=== PATIENT | male | born 1930 | race Caucasian/White ===

== ENCOUNTER 2019-03-10 19:01 | Inpatient (IN) ==
[2019-03-10] MEDS ORDERED: SODIUM CHLORIDE 0.9% 1,000 ML IV STA (21:19)
[2019-03-10 21:45] LABS: Basophils % 0.1 % (0.0-0.8); Hematocrit 36.8 VOL% (42.0-52.0); Hemoglobin 12.9 GM/DL (14.0-18.0); Immature Granulocytes % 0.4 %; Immature Granulocytes Absolute 0.05 #; Lymphocytes # 0.6 10*3/uL (1.4-4.0); Mean Corpuscular HGB Conc 35.1 GM/DL (32-36); Mean Corpuscular Volume 88.9 FL (87-102); Mean Platelet Volume 9.6 FL (9.6-12.0); Monocytes % 7.1 % (1.7-12.7); Neutrophils % 87.4 % (38.7-73.9); Platelet Count 152 T/CUMM (130-400); Red Blood Count 4.14 MC/CUMM (3.8-5.5); Red Cell Distribution Width 12.6 % (9.3-17.3); White Blood Count 12.4 T/CUMM (4-12)
[2019-03-10 22:00] LABS: Albumin 3.3 G/DL (3.4-5.0); Bilirubin,Total 1.3 MG/DL (0.2-1.0); Calcium 8.4 MG/DL (8.5-10.1); Osmolality,Calculated 277.1 MOS/KG (273-304); Total Protein 6.9 G/DL (6.4-8.3)
[2019-03-10 22:35] LABS: Apearance,Urine Slightly Hazy (Clear); Bilirubin,Urine Negative (Negative); Blood, Urine Large mg/dL (Negative); Glucose,Urine (UA) Negative (Negative); Granular Casts,Urine 4 /LPF (0-1); Hyaline Casts,Urine 4 /LPF (0-3); Ketones,Urine 5 mg/dL (Negative); Mucus,Urine Occasional /LPF (Occasional); Nitrite,Urine Negative (Negative); Protein,Urine 100 MG/DL; RBC,Urine 1 /HPF (0-4); Squamous Epithelial Cell,Urine Occasional /HPF (0-10); Urine Color Yellow (Yellow); Urine Specific Gravity 1.018 (1.001-1.035); Urine Urobilinogen < 2.0 EU/DL (0.2-1.0); WBC,Urine 30 /HPF (0-6)
[2019-03-10] MEDS ORDERED: cefTRIAXone 1,000 MG in SODIUM CHLORIDE 0.9% 100 ML IV STA (22:58)
[2019-03-11] MEDS ORDERED: DOCUSATE SODIUM 100 MG CAPSULE PO PRN (00:05)
[2019-03-11] MEDS ORDERED: ONDANSETRON 4 MG/2 ML VIAL IV PRN (00:05)
[2019-03-11] MEDS ORDERED: guaiFENesin/DM ER 600-30 MG TABLET PO PRN (00:05)
[2019-03-11] MEDS: ALBUTEROL/IPRATROPIUM 3 ML NEB RESP TX SCH ×4 (01:04→19:16)
[2019-03-11] MEDS: SODIUM CHLORIDE 0.9% 1,000 ML IV SCH ×3 (01:39→18:46)
[2019-03-11] MEDS: AZITHROMYCIN INJ 500 MG in SODIUM CHLORIDE 0.9% 250 ML IV SCH (01:39)
[2019-03-11 07:14] LABS: Basophils % 0.1 % (0.0-0.8); Hematocrit 34.2 VOL% (42.0-52.0); Hemoglobin 11.9 GM/DL (14.0-18.0); Immature Granulocytes % 0.5 %; Immature Granulocytes Absolute 0.05 #; Lymphocytes # 0.6 10*3/uL (1.4-4.0); Lymphocytes % 6.1 % (21.2-54.2); Mean Corpuscular HGB Conc 34.8 GM/DL (32-36); Mean Corpuscular Volume 88.4 FL (87-102); Mean Platelet Volume 9.3 FL (9.6-12.0); Monocytes % 6.3 % (1.7-12.7); Platelet Count 143 T/CUMM (130-400); Red Blood Count 3.87 MC/CUMM (3.8-5.5); Red Cell Distribution Width 12.7 % (9.3-17.3)
[2019-03-11 07:56] LABS: Albumin 2.7 G/DL (3.4-5.0); Bilirubin,Total 1.8 MG/DL (0.2-1.0); Calcium 8.2 MG/DL (8.5-10.1); Total Protein 5.7 G/DL (6.4-8.3)
[2019-03-11] MEDS: PANTOPRAZOLE 40 MG TABLET PO SCH (08:45)
[2019-03-11] MEDS: ENOXAPARIN 40 MG/0.4 ML SYRINGE SUBCUT SCH (08:45)
[2019-03-11] MEDS: ZALEPLON 5 MG CAPSULE PO PRN (21:42)
[2019-03-12] MEDS ORDERED: cefTRIAXone 1,000 MG in SYRINGE 1 EACH IV SCH (01:00)
[2019-03-12] MEDS: ALBUTEROL/IPRATROPIUM 3 ML NEB RESP TX SCH ×4 (01:36→21:10)
[2019-03-12] MEDS: SODIUM CHLORIDE 0.9% 1,000 ML IV SCH (02:42)
[2019-03-12 05:31] LABS: Basophils % 0.1 % (0.0-0.8); Eosinophils % 0.1 % (0.00-10.9); Hematocrit 33.8 VOL% (42.0-52.0); Immature Granulocytes % 0.3 %; Immature Granulocytes Absolute 0.04 #; Lymphocytes # 0.8 10*3/uL (1.4-4.0); Lymphocytes % 6.5 % (21.2-54.2); Mean Corpuscular HGB Conc 35.5 GM/DL (32-36); Mean Corpuscular Volume 88.3 FL (87-102); Mean Platelet Volume 10.4 FL (9.6-12.0); Monocytes % 6.6 % (1.7-12.7); Neutrophils % 86.4 % (38.7-73.9); Platelet Count 179 T/CUMM (130-400); Red Blood Count 3.83 MC/CUMM (3.8-5.5); Red Cell Distribution Width 12.7 % (9.3-17.3); White Blood Count 11.9 T/CUMM (4-12)
[2019-03-12 06:06] LABS: Calcium 7.8 MG/DL (8.5-10.1); Osmolality,Calculated 277.7 MOS/KG (273-304)
[2019-03-12] MEDS ORDERED: ALPRAZolam 0.5 MG TABLET PO ONE (10:30)
[2019-03-12] MEDS ORDERED: ALPRAZolam 0.5 MG TABLET PO SCH (10:30)
[2019-03-12] MEDS: PANTOPRAZOLE 40 MG TABLET PO SCH (12:12)
[2019-03-12] MEDS: methylPREDNISolone SOD SUC 40 MG/1 ML VIAL IV SCH ×3 (12:12→21:59)
[2019-03-12] MEDS: ENOXAPARIN 40 MG/0.4 ML SYRINGE SUBCUT SCH (12:13)
[2019-03-12] MEDS: AZITHROMYCIN INJ 500 MG in SODIUM CHLORIDE 0.9% 250 ML IV SCH (12:21)
[2019-03-12] MEDS: BUDESONIDE 0.5 MG/2 ML NEB RESP TX SCH ×2 (13:01→21:10)
[2019-03-12] MEDS: PIPERACILLIN/TAZOBACTAM 3,375 MG in SODIUM CHLORIDE 0.9% 100 ML IV SCH ×2 (13:05→22:05)
[2019-03-12] MEDS ORDERED: hydrOXYzine HCL 10 MG TABLET PO PRN (14:15)
[2019-03-12] MEDS ORDERED: FEXOFENADINE 60 MG TABLET PO PRN (14:15)
[2019-03-12] MEDS ORDERED: POLYVINYL ALCOHOL 1.4% OPH SOLN 15 ML BOTTLE BOTH EYES PRN (14:15)
[2019-03-12] MEDS ORDERED: FLUTICASONE 50 MCG NASAL SPRAY 16 GM BOTTLE BOTH NARES PRN (14:15)
[2019-03-12] MEDS ORDERED: LIDOCAINE 5% PATCH TRANSDERM PRN (14:15)
[2019-03-12] MEDS: CHOLECALCIFEROL 1,000 UNIT TABLET PO SCH (15:42)
[2019-03-12] MEDS: ASPIRIN EC 81 MG TABLET PO SCH (15:42)
[2019-03-12] MEDS: DOCUSATE SODIUM 100 MG CAPSULE PO SCH ×2 (15:42→21:58)
[2019-03-12] MEDS: FINASTERIDE 5 MG TABLET PO SCH (15:42)
[2019-03-12] MEDS: FUROSEMIDE 20 MG/2 ML VIAL IV SCH (15:42)
[2019-03-12] MEDS: FLUoxetine 20 MG CAPSULE PO SCH ×2 (15:42→21:58)
[2019-03-12] MEDS: ALBUTEROL 2.5 MG/3 ML NEB RESP TX PRN (15:45)
[2019-03-12] MEDS: CARVEDILOL 3.125 MG TABLET PO SCH (16:28)
[2019-03-12] MEDS ORDERED: QUEtiapine 100 MG TABLET PO SCH (21:00)
[2019-03-12] MEDS: ZALEPLON 5 MG CAPSULE PO PRN (22:05)
[2019-03-13] MEDS: ALBUTEROL/IPRATROPIUM 3 ML NEB RESP TX SCH ×4 (00:50→19:33)
[2019-03-13 04:15] LABS: ABG Base Excess -0.4 MMOL/L (-2.5-2.5); ABG HCO3 23.8 MMOL/L (20-26); ABG Oxygen Saturation 86.3 % (95-100); ABG PCO2 34.7 MM HG (35-48); ABG PH 7.434 (7.35-7.45); ABG PO2 50.3 MM HG (80-95); ABG TCO2 20.4 MMOL/L (23-27); Allen Test Positive; Pt O2 Delivery Device BIPAP
[2019-03-13 04:24] LABS: Basophils % 0.1 % (0.0-0.8); Hematocrit 34.5 VOL% (42.0-52.0); Hemoglobin 12.3 GM/DL (14.0-18.0); Immature Granulocytes % 0.6 %; Immature Granulocytes Absolute 0.05 #; Lymphocytes # 0.3 10*3/uL (1.4-4.0); Lymphocytes % 3.4 % (21.2-54.2); Mean Corpuscular HGB Conc 35.7 GM/DL (32-36); Mean Corpuscular Volume 87.6 FL (87-102); Neutrophils % 92.9 % (38.7-73.9); Platelet Count 168 T/CUMM (130-400); Red Blood Count 3.94 MC/CUMM (3.8-5.5); Red Cell Distribution Width 12.6 % (9.3-17.3); White Blood Count 8.7 T/CUMM (4-12)
[2019-03-13 04:46] LABS: Calcium 8.2 MG/DL (8.5-10.1)
[2019-03-13] MEDS: methylPREDNISolone SOD SUC 40 MG/1 ML VIAL IV SCH ×4 (05:25→21:35)
[2019-03-13 05:26] LABS: Band Neutrophils 1 % (0-10); Lymphocytes 4 % (20-55); Platelet Estimate Adequate; Segmented Neutrophils 93 % (50-85); Total Cells Counted 100
[2019-03-13] MEDS: PIPERACILLIN/TAZOBACTAM 3,375 MG in SODIUM CHLORIDE 0.9% 100 ML IV SCH ×3 (05:32→21:42)
[2019-03-13] MEDS: BUDESONIDE 0.5 MG/2 ML NEB RESP TX SCH ×2 (06:47→19:35)
[2019-03-13] MEDS ORDERED: AZITHROMYCIN 250 MG TABLET PO SCH (09:00)
[2019-03-13] MEDS: CHOLECALCIFEROL 1,000 UNIT TABLET PO SCH (09:43)
[2019-03-13] MEDS: DOCUSATE SODIUM 100 MG CAPSULE PO SCH ×2 (09:43→20:32)
[2019-03-13] MEDS: CARVEDILOL 3.125 MG TABLET PO SCH ×2 (09:44→17:26)
[2019-03-13] MEDS: ASPIRIN EC 81 MG TABLET PO SCH (09:44)
[2019-03-13] MEDS: PANTOPRAZOLE 40 MG TABLET PO SCH (09:45)
[2019-03-13] MEDS: FLUoxetine 20 MG CAPSULE PO SCH (09:45)
[2019-03-13] MEDS: ENOXAPARIN 40 MG/0.4 ML SYRINGE SUBCUT SCH (09:45)
[2019-03-13] MEDS: FINASTERIDE 5 MG TABLET PO SCH (09:45)
[2019-03-13] MEDS: FUROSEMIDE 20 MG/2 ML VIAL IV SCH ×2 (09:46→17:25)
[2019-03-13] MEDS: ZINC OXIDE PASTE 113 GM TUBE TOP SCH (20:33)
[2019-03-13] MEDS ORDERED: QUEtiapine 25 MG TABLET PO SCH (21:00)
[2019-03-13] MEDS: ZALEPLON 5 MG CAPSULE PO PRN (22:27)
[2019-03-14] MEDS: ALBUTEROL/IPRATROPIUM 3 ML NEB RESP TX SCH ×4 (00:36→20:22)
[2019-03-14] MEDS: ACETAMINOPHEN 325 MG TABLET PO PRN (02:18)
[2019-03-14] MEDS: ALBUTEROL 2.5 MG/3 ML NEB RESP TX PRN (02:35)
[2019-03-14] MEDS ORDERED: FUROSEMIDE 40 MG/4 ML VIAL IV ONE (02:54)
[2019-03-14] MEDS: methylPREDNISolone SOD SUC 40 MG/1 ML VIAL IV SCH ×3 (04:26→17:07)
[2019-03-14] MEDS: PIPERACILLIN/TAZOBACTAM 3,375 MG in SODIUM CHLORIDE 0.9% 100 ML IV SCH ×2 (04:28→13:25)
[2019-03-14 05:57] LABS: Basophils % 0.2 % (0.0-0.8); Hematocrit 36.9 VOL% (42.0-52.0); Hemoglobin 13.4 GM/DL (14.0-18.0); Immature Granulocytes % 0.9 %; Lymphocytes # 0.5 10*3/uL (1.4-4.0); Lymphocytes % 1.9 % (21.2-54.2); Mean Corpuscular HGB Conc 36.3 GM/DL (32-36); Mean Corpuscular Volume 85.6 FL (87-102); Mean Platelet Volume 10.1 FL (9.6-12.0); Platelet Count 267 T/CUMM (130-400); Red Blood Count 4.31 MC/CUMM (3.8-5.5); Red Cell Distribution Width 12.7 % (9.3-17.3); White Blood Count 23.3 T/CUMM (4-12)
[2019-03-14 06:10] LABS: Calcium 8.5 MG/DL (8.5-10.1); Osmolality,Calculated 280.8 MOS/KG (273-304)
[2019-03-14 06:21] LABS: Hypochromasia Slight; Lymphocytes 3 % (20-55); Platelet Estimate Adequate; Segmented Neutrophils 94 % (50-85); Total Cells Counted 100
[2019-03-14] MEDS: BUDESONIDE 0.5 MG/2 ML NEB RESP TX SCH ×2 (07:12→20:22)
[2019-03-14] MEDS: CARVEDILOL 3.125 MG TABLET PO SCH (08:41)
[2019-03-14] MEDS: FUROSEMIDE 20 MG/2 ML VIAL IV SCH (08:41)
[2019-03-14] MEDS: FUROSEMIDE 40 MG/4 ML VIAL IV SCH ×2 (09:12→17:07)
[2019-03-14] MEDS: PANTOPRAZOLE 40 MG TABLET PO SCH (09:14)
[2019-03-14] MEDS: CHOLECALCIFEROL 1,000 UNIT TABLET PO SCH (09:15)
[2019-03-14] MEDS: FINASTERIDE 5 MG TABLET PO SCH (09:15)
[2019-03-14] MEDS: DOCUSATE SODIUM 100 MG CAPSULE PO SCH ×2 (09:15→20:35)
[2019-03-14] MEDS: POTASSIUM CHLORIDE 20 MEQ TABLET PO SCH ×2 (09:16→20:32)
[2019-03-14] MEDS: ENOXAPARIN 40 MG/0.4 ML SYRINGE SUBCUT SCH (09:16)
[2019-03-14] MEDS: CARVEDILOL 6.25 MG TABLET PO SCH ×2 (09:16→17:08)
[2019-03-14] MEDS: ASPIRIN EC 81 MG TABLET PO SCH (09:16)
[2019-03-14] MEDS: ZINC OXIDE PASTE 113 GM TUBE TOP SCH ×2 (09:18→20:33)
[2019-03-14] MEDS ORDERED: FUROSEMIDE 20 MG/2 ML VIAL ONE (16:56)
[2019-03-14] MEDS: APIXABAN 5 MG TABLET PO SCH (20:36)
[2019-03-15] MEDS: PIPERACILLIN/TAZOBACTAM 3,375 MG in SODIUM CHLORIDE 0.9% 100 ML IV SCH ×2 (00:11→08:20)
[2019-03-15] MEDS: methylPREDNISolone SOD SUC 40 MG/1 ML VIAL IV SCH ×2 (00:12→10:15)
[2019-03-15] MEDS: FUROSEMIDE 40 MG/4 ML VIAL IV SCH ×3 (00:13→15:26)
[2019-03-15] MEDS: ALBUTEROL/IPRATROPIUM 3 ML NEB RESP TX SCH ×4 (01:39→19:52)
[2019-03-15 05:06] LABS: Basophils # 0.1 10*3/uL (0.0-0.2); Basophils % 0.2 % (0.0-0.8); Hematocrit 39.2 VOL% (42.0-52.0); Hemoglobin 13.7 GM/DL (14.0-18.0); Immature Granulocytes % 0.8 %; Immature Granulocytes Absolute 0.17 #; Lymphocytes # 0.5 10*3/uL (1.4-4.0); Lymphocytes % 2.3 % (21.2-54.2); Mean Corpuscular HGB Conc 34.9 GM/DL (32-36); Mean Corpuscular Volume 87.9 FL (87-102); Monocytes % 4.6 % (1.7-12.7); Neutrophils % 92.1 % (38.7-73.9); Platelet Count 284 T/CUMM (130-400); Red Blood Count 4.46 MC/CUMM (3.8-5.5); Red Cell Distribution Width 12.6 % (9.3-17.3); White Blood Count 20.2 T/CUMM (4-12)
[2019-03-15 05:35] LABS: Calcium 8.1 MG/DL (8.5-10.1); Osmolality,Calculated 279.1 MOS/KG (273-304)
[2019-03-15 05:50] LABS: Lymphocytes 2 % (20-55); Segmented Neutrophils 93 % (50-85); Total Cells Counted 100
[2019-03-15 05:51] LABS: Anisocytosis Slight; Microcytosis Slight
[2019-03-15 05:52] LABS: Stomatocytes Few; Target Cells Slight
[2019-03-15 05:55] LABS: Platelet Estimate Normal
[2019-03-15] MEDS: BUDESONIDE 0.5 MG/2 ML NEB RESP TX SCH ×2 (07:02→19:52)
[2019-03-15] MEDS: ZINC OXIDE PASTE 113 GM TUBE TOP SCH ×2 (09:00→21:45)
[2019-03-15] MEDS: CHOLECALCIFEROL 1,000 UNIT TABLET PO SCH (10:11)
[2019-03-15] MEDS: FINASTERIDE 5 MG TABLET PO SCH (10:12)
[2019-03-15] MEDS: POTASSIUM CHLORIDE 20 MEQ TABLET PO SCH ×2 (10:13→21:45)
[2019-03-15] MEDS: PANTOPRAZOLE 40 MG TABLET PO SCH (10:13)
[2019-03-15] MEDS: DOCUSATE SODIUM 100 MG CAPSULE PO SCH ×2 (10:14→21:45)
[2019-03-15] MEDS: APIXABAN 5 MG TABLET PO SCH ×2 (10:14→21:45)
[2019-03-15] MEDS: ASPIRIN EC 81 MG TABLET PO SCH (10:14)
[2019-03-15] MEDS: CARVEDILOL 6.25 MG TABLET PO SCH ×2 (10:15→17:30)
[2019-03-15] MEDS: LOSARTAN 25 MG TABLET PO SCH (15:25)
[2019-03-15] MEDS: CEFEPIME 2,000 MG in SYRINGE 1 EACH IV SCH ×2 (15:30→21:59)
[2019-03-15] MEDS: VANCOMYCIN INJ 1,500 MG in SODIUM CHLORIDE 0.9% 500 ML IV SCH (15:38)
[2019-03-15] MEDS: AZITHROMYCIN INJ 500 MG in SODIUM CHLORIDE 0.9% 250 ML IV SCH (17:30)
[2019-03-16] MEDS: FUROSEMIDE 40 MG/4 ML VIAL IV SCH ×2 (01:18→14:13)
[2019-03-16] MEDS: ALBUTEROL/IPRATROPIUM 3 ML NEB RESP TX SCH ×4 (01:31→19:15)
[2019-03-16 05:27] LABS: Basophils % 0.2 % (0.0-0.8); Eosinophils # 0.1 10*3/uL (0.0-0.87); Eosinophils % 0.3 % (0.00-10.9); Hemoglobin 14.2 GM/DL (14.0-18.0); Immature Granulocytes % 1.4 %; Immature Granulocytes Absolute 0.26 #; Lymphocytes # 0.9 10*3/uL (1.4-4.0); Lymphocytes % 4.6 % (21.2-54.2); Mean Corpuscular HGB Conc 34.6 GM/DL (32-36); Mean Corpuscular Volume 89.5 FL (87-102); Mean Platelet Volume 10.6 FL (9.6-12.0); Monocytes % 3.5 % (1.7-12.7); Platelet Count 317 T/CUMM (130-400); Red Blood Count 4.58 MC/CUMM (3.8-5.5); Red Cell Distribution Width 12.8 % (9.3-17.3); White Blood Count 18.3 T/CUMM (4-12)
[2019-03-16] MEDS: CEFEPIME 2,000 MG in SYRINGE 1 EACH IV SCH ×3 (05:46→20:38)
[2019-03-16 05:47] LABS: Calcium 8.6 MG/DL (8.5-10.1); Osmolality,Calculated 273.4 MOS/KG (273-304)
[2019-03-16] MEDS: POTASSIUM CHLORIDE 20 MEQ TABLET PO PRN ×3 (05:55→14:16)
[2019-03-16 06:25] LABS: Anisocytosis 1+; Eosinophils 1 % (0-10); Lymphocytes 6 % (20-55); Platelet Estimate Adequate; Segmented Neutrophils 90 % (50-85); Total Cells Counted 100
[2019-03-16] MEDS: ACETAMINOPHEN 325 MG TABLET PO PRN ×2 (07:08→20:39)
[2019-03-16] MEDS: BUDESONIDE 0.5 MG/2 ML NEB RESP TX SCH ×2 (07:20→19:15)
[2019-03-16] MEDS: CARVEDILOL 6.25 MG TABLET PO SCH ×2 (07:38→16:45)
[2019-03-16] MEDS: VANCOMYCIN INJ 1,500 MG in SODIUM CHLORIDE 0.9% 500 ML IV SCH (07:38)
[2019-03-16] MEDS: POTASSIUM CHLORIDE 20 MEQ TABLET PO SCH ×2 (09:38→20:39)
[2019-03-16] MEDS: LOSARTAN 25 MG TABLET PO SCH (09:38)
[2019-03-16] MEDS: predniSONE 20 MG TABLET PO SCH (09:38)
[2019-03-16] MEDS: PANTOPRAZOLE 40 MG TABLET PO SCH (09:38)
[2019-03-16] MEDS: CHOLECALCIFEROL 1,000 UNIT TABLET PO SCH (09:38)
[2019-03-16] MEDS: ASPIRIN EC 81 MG TABLET PO SCH (09:38)
[2019-03-16] MEDS: APIXABAN 5 MG TABLET PO SCH ×2 (09:39→20:40)
[2019-03-16] MEDS: FINASTERIDE 5 MG TABLET PO SCH (09:39)
[2019-03-16] MEDS: DOCUSATE SODIUM 100 MG CAPSULE PO SCH ×2 (09:40→20:40)
[2019-03-16] MEDS: ZINC OXIDE PASTE 113 GM TUBE TOP SCH ×2 (09:40→20:40)
[2019-03-16] MEDS: AZITHROMYCIN INJ 500 MG in SODIUM CHLORIDE 0.9% 250 ML IV SCH (16:45)
[2019-03-16] MEDS: ZALEPLON 5 MG CAPSULE PO PRN (21:47)
[2019-03-16] MEDS: POLYETHYLENE GLYCOL POWDER 17 GM PACK PO PRN (21:47)
[2019-03-17] MEDS: ALBUTEROL/IPRATROPIUM 3 ML NEB RESP TX SCH ×4 (01:45→20:26)
[2019-03-17] MEDS: FUROSEMIDE 40 MG/4 ML VIAL IV SCH ×2 (01:50→12:30)
[2019-03-17] MEDS: VANCOMYCIN INJ 1,500 MG in SODIUM CHLORIDE 0.9% 500 ML IV SCH ×2 (01:57→20:53)
[2019-03-17 03:37] LABS: Basophils % 0.2 % (0.0-0.8); Eosinophils # 0.2 10*3/uL (0.0-0.87); Hematocrit 39.6 VOL% (42.0-52.0); Hemoglobin 13.7 GM/DL (14.0-18.0); Immature Granulocytes % 1.5 %; Immature Granulocytes Absolute 0.26 #; Lymphocytes % 5.8 % (21.2-54.2); Mean Corpuscular HGB Conc 34.6 GM/DL (32-36); Mean Corpuscular Volume 89.2 FL (87-102); Mean Platelet Volume 10.6 FL (9.6-12.0); Monocytes % 2.6 % (1.7-12.7); Neutrophils % 88.9 % (38.7-73.9); Platelet Count 291 T/CUMM (130-400); Red Blood Count 4.44 MC/CUMM (3.8-5.5); Red Cell Distribution Width 12.4 % (9.3-17.3); White Blood Count 17.5 T/CUMM (4-12)
[2019-03-17 05:46] LABS: Calcium 8.4 MG/DL (8.5-10.1); Osmolality,Calculated 276.2 MOS/KG (273-304)
[2019-03-17] MEDS: CEFEPIME 2,000 MG in SYRINGE 1 EACH IV SCH (05:51)
[2019-03-17] MEDS: BUDESONIDE 0.5 MG/2 ML NEB RESP TX SCH ×2 (06:47→20:26)
[2019-03-17] MEDS: CHOLECALCIFEROL 1,000 UNIT TABLET PO SCH (08:06)
[2019-03-17] MEDS: FINASTERIDE 5 MG TABLET PO SCH (08:06)
[2019-03-17] MEDS: PANTOPRAZOLE 40 MG TABLET PO SCH (08:06)
[2019-03-17] MEDS: POTASSIUM CHLORIDE 20 MEQ TABLET PO SCH ×2 (08:06→20:13)
[2019-03-17] MEDS: CARVEDILOL 6.25 MG TABLET PO SCH ×2 (08:06→17:06)
[2019-03-17] MEDS: APIXABAN 5 MG TABLET PO SCH ×2 (08:06→20:13)
[2019-03-17] MEDS: LOSARTAN 25 MG TABLET PO SCH (08:06)
[2019-03-17] MEDS: predniSONE 20 MG TABLET PO SCH (08:06)
[2019-03-17] MEDS: DOCUSATE SODIUM 100 MG CAPSULE PO SCH ×2 (08:07→20:13)
[2019-03-17] MEDS: ASPIRIN EC 81 MG TABLET PO SCH (08:07)
[2019-03-17] MEDS: ZINC OXIDE PASTE 113 GM TUBE TOP SCH ×2 (08:08→23:12)
[2019-03-17] MEDS: POLYETHYLENE GLYCOL POWDER 17 GM PACK PO PRN (08:08)
[2019-03-17] MEDS: MEROPENEM 1,000 MG in SODIUM CHLORIDE 0.9% 100 ML IV SCH ×2 (11:44→18:05)
[2019-03-17] MEDS: methylPREDNISolone SOD SUC 40 MG/1 ML VIAL IV SCH ×2 (11:44→19:36)
[2019-03-17] MEDS: LEVOFLOXACIN INJ 750 MG in PREMIX 1 EACH IV SCH (12:30)
[2019-03-18] MEDS: FUROSEMIDE 40 MG/4 ML VIAL IV SCH ×2 (00:21→14:40)
[2019-03-18] MEDS: ALBUTEROL/IPRATROPIUM 3 ML NEB RESP TX SCH ×4 (00:27→19:19)
[2019-03-18] MEDS: MEROPENEM 1,000 MG in SODIUM CHLORIDE 0.9% 100 ML IV SCH ×3 (02:44→19:30)
[2019-03-18] MEDS: methylPREDNISolone SOD SUC 40 MG/1 ML VIAL IV SCH ×2 (02:45→14:41)
[2019-03-18] MEDS: BUDESONIDE 0.5 MG/2 ML NEB RESP TX SCH ×2 (07:24→19:19)
[2019-03-18] MEDS ORDERED: FUROSEMIDE 40 MG/4 ML VIAL IV ONE (08:22)
[2019-03-18] MEDS: POTASSIUM CHLORIDE 20 MEQ TABLET PO SCH ×2 (08:42→20:38)
[2019-03-18] MEDS: LOSARTAN 25 MG TABLET PO SCH (08:42)
[2019-03-18] MEDS: PANTOPRAZOLE 40 MG TABLET PO SCH (08:42)
[2019-03-18] MEDS: ASPIRIN EC 81 MG TABLET PO SCH (08:42)
[2019-03-18] MEDS: CARVEDILOL 6.25 MG TABLET PO SCH ×2 (08:42→18:46)
[2019-03-18] MEDS: FINASTERIDE 5 MG TABLET PO SCH (08:42)
[2019-03-18] MEDS: APIXABAN 5 MG TABLET PO SCH (08:42)
[2019-03-18] MEDS: DOCUSATE SODIUM 100 MG CAPSULE PO SCH ×2 (08:42→20:38)
[2019-03-18] MEDS: VANCOMYCIN INJ 1,500 MG in SODIUM CHLORIDE 0.9% 500 ML IV SCH ×2 (08:44→20:38)
[2019-03-18] MEDS: CHOLECALCIFEROL 1,000 UNIT TABLET PO SCH (08:44)
[2019-03-18] MEDS: ZINC OXIDE PASTE 113 GM TUBE TOP SCH ×2 (09:26→21:17)
[2019-03-18] MEDS: FLUCONAZOLE INJ 100 MG in IV BAG 1 EACH IV SCH (14:41)
[2019-03-18] MEDS ORDERED: methylPREDNISolone SOD SUC 40 MG/1 ML VIAL IV SCH ×2 (15:00)
[2019-03-18] MEDS: LEVOFLOXACIN INJ 750 MG in PREMIX 1 EACH IV SCH (15:15)
[2019-03-19] MEDS: FUROSEMIDE 40 MG/4 ML VIAL IV SCH ×2 (00:02→15:12)
[2019-03-19] MEDS: ALBUTEROL/IPRATROPIUM 3 ML NEB RESP TX SCH ×4 (01:42→19:14)
[2019-03-19] MEDS: MEROPENEM 1,000 MG in SODIUM CHLORIDE 0.9% 100 ML IV SCH ×3 (03:20→18:10)
[2019-03-19] MEDS: methylPREDNISolone SOD SUC 40 MG/1 ML VIAL IV SCH ×2 (04:18→15:10)
[2019-03-19 04:42] LABS: Basophils # 0.1 10*3/uL (0.0-0.2); Basophils % 0.3 % (0.0-0.8); Eosinophils # 0.1 10*3/uL (0.0-0.87); Eosinophils % 0.3 % (0.00-10.9); Hematocrit 38.5 VOL% (42.0-52.0); Hemoglobin 13.1 GM/DL (14.0-18.0); Immature Granulocytes % 1.8 %; Immature Granulocytes Absolute 0.51 #; Lymphocytes # 0.7 10*3/uL (1.4-4.0); Lymphocytes % 2.5 % (21.2-54.2); Mean Corpuscular Volume 90.6 FL (87-102); Monocytes % 4.2 % (1.7-12.7); Neutrophils % 90.9 % (38.7-73.9); Platelet Count 353 T/CUMM (130-400); Red Blood Count 4.25 MC/CUMM (3.8-5.5); Red Cell Distribution Width 12.4 % (9.3-17.3); White Blood Count 27.8 T/CUMM (4-12)
[2019-03-19 04:48] LABS: Calcium 8.7 MG/DL (8.5-10.1); Osmolality,Calculated 271.7 MOS/KG (273-304)
[2019-03-19 05:46] LABS: Eosinophils 1 % (0-10); Lymphocytes 5 % (20-55); Segmented Neutrophils 92 % (50-85)
[2019-03-19 05:47] LABS: Platelet Estimate Adequate; Total Cells Counted 100
[2019-03-19] MEDS: BUDESONIDE 0.5 MG/2 ML NEB RESP TX SCH ×2 (07:20→19:14)
[2019-03-19] MEDS: FINASTERIDE 5 MG TABLET PO SCH (09:13)
[2019-03-19] MEDS: CHOLECALCIFEROL 1,000 UNIT TABLET PO SCH (09:13)
[2019-03-19] MEDS: POTASSIUM CHLORIDE 20 MEQ TABLET PO SCH ×2 (09:13→21:10)
[2019-03-19] MEDS: ASPIRIN EC 81 MG TABLET PO SCH (09:13)
[2019-03-19] MEDS: CARVEDILOL 6.25 MG TABLET PO SCH ×2 (09:13→18:10)
[2019-03-19] MEDS: VANCOMYCIN INJ 1,500 MG in SODIUM CHLORIDE 0.9% 500 ML IV SCH ×2 (09:14→21:10)
[2019-03-19] MEDS: DOCUSATE SODIUM 100 MG CAPSULE PO SCH ×2 (09:14→21:10)
[2019-03-19] MEDS: LOSARTAN 25 MG TABLET PO SCH (09:14)
[2019-03-19] MEDS: ZINC OXIDE PASTE 113 GM TUBE TOP SCH ×2 (09:14→21:10)
[2019-03-19] MEDS: PANTOPRAZOLE 40 MG TABLET PO SCH (09:17)
[2019-03-19] MEDS: FLUCONAZOLE INJ 100 MG in IV BAG 1 EACH IV SCH (14:25)
[2019-03-19] MEDS: LEVOFLOXACIN INJ 750 MG in PREMIX 1 EACH IV SCH (15:00)
[2019-03-19] MEDS: ENOXAPARIN 40 MG/0.4 ML SYRINGE SUBCUT SCH (21:10)
[2019-03-19] MEDS: ZALEPLON 5 MG CAPSULE PO PRN (23:24)
[2019-03-20] MEDS: ALBUTEROL/IPRATROPIUM 3 ML NEB RESP TX SCH ×4 (00:28→19:44)
[2019-03-20] MEDS: MEROPENEM 1,000 MG in SODIUM CHLORIDE 0.9% 100 ML IV SCH ×2 (02:04→12:54)
[2019-03-20] MEDS: methylPREDNISolone SOD SUC 40 MG/1 ML VIAL IV SCH ×2 (04:20→15:45)
[2019-03-20 05:08] LABS: Basophils # 0.1 10*3/uL (0.0-0.2); Basophils % 0.3 % (0.0-0.8); Eosinophils % 0.2 % (0.00-10.9); Hematocrit 39.8 VOL% (42.0-52.0); Hemoglobin 13.4 GM/DL (14.0-18.0); Immature Granulocytes % 1.6 %; Immature Granulocytes Absolute 0.38 #; Lymphocytes # 0.8 10*3/uL (1.4-4.0); Lymphocytes % 3.6 % (21.2-54.2); Mean Corpuscular HGB Conc 33.7 GM/DL (32-36); Mean Corpuscular Volume 91.7 FL (87-102); Mean Platelet Volume 9.9 FL (9.6-12.0); Monocytes % 4.5 % (1.7-12.7); Neutrophils % 89.8 % (38.7-73.9); Platelet Count 322 T/CUMM (130-400); Red Blood Count 4.34 MC/CUMM (3.8-5.5); Red Cell Distribution Width 12.3 % (9.3-17.3); White Blood Count 23.3 T/CUMM (4-12)
[2019-03-20 05:24] LABS: Calcium 8.5 MG/DL (8.5-10.1); Osmolality,Calculated 270.7 MOS/KG (273-304)
[2019-03-20 05:28] LABS: Hypochromasia Slight; Lymphocytes 3 % (20-55); Platelet Estimate Adequate; Segmented Neutrophils 90 % (50-85); Total Cells Counted 100
[2019-03-20] MEDS: BUDESONIDE 0.5 MG/2 ML NEB RESP TX SCH ×2 (07:25→19:44)
[2019-03-20] MEDS: CHOLECALCIFEROL 1,000 UNIT TABLET PO SCH (09:19)
[2019-03-20] MEDS: LOSARTAN 25 MG TABLET PO SCH (09:20)
[2019-03-20] MEDS: FINASTERIDE 5 MG TABLET PO SCH (09:20)
[2019-03-20] MEDS: POTASSIUM CHLORIDE 20 MEQ TABLET PO SCH ×2 (09:20→22:04)
[2019-03-20] MEDS: PANTOPRAZOLE 40 MG TABLET PO SCH (09:21)
[2019-03-20] MEDS: DOCUSATE SODIUM 100 MG CAPSULE PO SCH ×2 (09:21→22:05)
[2019-03-20] MEDS: ASPIRIN EC 81 MG TABLET PO SCH (09:21)
[2019-03-20] MEDS: CARVEDILOL 6.25 MG TABLET PO SCH ×2 (09:22→18:32)
[2019-03-20] MEDS: FUROSEMIDE 40 MG/4 ML VIAL IV SCH ×2 (09:23→22:05)
[2019-03-20] MEDS: ZINC OXIDE PASTE 113 GM TUBE TOP SCH ×2 (10:01→22:08)
[2019-03-20] MEDS: VANCOMYCIN INJ 1,500 MG in SODIUM CHLORIDE 0.9% 500 ML IV SCH (10:03)
[2019-03-20] MEDS: FLUCONAZOLE INJ 100 MG in IV BAG 1 EACH IV SCH (12:58)
[2019-03-20] MEDS: LEVOFLOXACIN 750 MG TABLET PO SCH (15:47)
[2019-03-20] MEDS: LEVOFLOXACIN INJ 750 MG in PREMIX 1 EACH IV SCH (16:21)
[2019-03-20] MEDS: ACETAMINOPHEN 325 MG TABLET PO PRN (22:04)
[2019-03-20] MEDS: ZALEPLON 5 MG CAPSULE PO PRN (22:05)
[2019-03-20] MEDS: ENOXAPARIN 40 MG/0.4 ML SYRINGE SUBCUT SCH (22:06)
[2019-03-21] MEDS: ALBUTEROL/IPRATROPIUM 3 ML NEB RESP TX SCH ×3 (00:13→12:11)
[2019-03-21] MEDS: methylPREDNISolone SOD SUC 40 MG/1 ML VIAL IV SCH (04:15)
[2019-03-21] MEDS: BUDESONIDE 0.5 MG/2 ML NEB RESP TX SCH (07:00)
[2019-03-21] MEDS ORDERED: FLUCONAZOLE 100 MG TABLET PO SCH (09:00)
[2019-03-21] MEDS: POTASSIUM CHLORIDE 20 MEQ TABLET PO SCH (10:02)
[2019-03-21] MEDS: ASPIRIN EC 81 MG TABLET PO SCH (10:03)
[2019-03-21] MEDS: DOCUSATE SODIUM 100 MG CAPSULE PO SCH (10:03)
[2019-03-21] MEDS: CARVEDILOL 6.25 MG TABLET PO SCH ×2 (10:03→17:08)
[2019-03-21] MEDS: CHOLECALCIFEROL 1,000 UNIT TABLET PO SCH (10:04)
[2019-03-21] MEDS: ACETAMINOPHEN 325 MG TABLET PO PRN (10:04)
[2019-03-21] MEDS: LOSARTAN 25 MG TABLET PO SCH (10:04)
[2019-03-21] MEDS: ZINC OXIDE PASTE 113 GM TUBE TOP SCH (10:05)
[2019-03-21] MEDS: FINASTERIDE 5 MG TABLET PO SCH (10:05)
[2019-03-21] MEDS: PANTOPRAZOLE 40 MG TABLET PO SCH (10:05)
[2019-03-21] MEDS: FUROSEMIDE 40 MG/4 ML VIAL IV SCH (10:06)
[2019-03-21] MEDS: LEVOFLOXACIN 750 MG TABLET PO SCH (15:21)
[2019-03-21 16:54] VITALS: BP 154/81
[2019-03-22] MEDS ORDERED: FUROSEMIDE 40 MG TABLET PO SCH (09:00)
== END 2019-03-21 17:53 | DRG 193 ==
LOC: EDBD → EDUNIT# → N.ED 19:01 → N.EDINP 03-11 00:07 → SUATTDRO 03-11 00:07 → N.2E 03-11 00:31 → N.CC 03-13 04:33 → N.TELEN 03-19 05:48 → N.CC 03-19 05:51 → N.TELEN 03-19 06:39
PROVIDERS: ADMIT Internal Medicine; ATTEND Family Medicine

== ENCOUNTER 2019-03-29 13:22 | Inpatient (IN) ==
[2019-03-29] MEDS ORDERED: LORazepam 2 MG/1 ML VIAL ONE (13:25)
[2019-03-29] MEDS ORDERED: methylPREDNISolone SOD SUC 125 MG/2 ML VIAL IV STA (13:49)
[2019-03-29] MEDS ORDERED: ONDANSETRON 4 MG/2 ML VIAL IV STA (13:49)
[2019-03-29] MEDS ORDERED: AZITHROMYCIN INJ 500 MG in SODIUM CHLORIDE 0.9% 250 ML IV STA (13:53)
[2019-03-29] MEDS ORDERED: cefTRIAXone 1,000 MG in SODIUM CHLORIDE 0.9% 100 ML IV STA (13:53)
[2019-03-29] MEDS ORDERED: ALBUTEROL NEB SOLN 5 MG/ML 20 ML/BOTTLE RESP TX SCH (14:00)
[2019-03-29 14:08] LABS: Basophils % 0.2 % (0.0-0.8); Eosinophils % 0.1 % (0.00-10.9); Hematocrit 33.3 VOL% (42.0-52.0); Hemoglobin 11.4 GM/DL (14.0-18.0); Immature Granulocytes % 0.7 %; Immature Granulocytes Absolute 0.14 #; Lymphocytes # 0.3 10*3/uL (1.4-4.0); Lymphocytes % 1.4 % (21.2-54.2); Mean Corpuscular HGB Conc 34.2 GM/DL (32-36); Mean Platelet Volume 9.5 FL (9.6-12.0); Monocytes % 1.8 % (1.7-12.7); Neutrophils % 95.8 % (38.7-73.9); Platelet Count 276 T/CUMM (130-400); Red Blood Count 3.74 MC/CUMM (3.8-5.5); Red Cell Distribution Width 12.1 % (9.3-17.3); White Blood Count 18.8 T/CUMM (4-12)
[2019-03-29 14:22] LABS: PT Patient Result 10.7 SECS
[2019-03-29 14:29] LABS: Alanine Aminotransferase 23 U/L (16-61); Albumin 2.2 G/DL (3.4-5.0); Alkaline Phosphatase 80 U/L (45-117); Aspartate Amino Transferase 23 U/L (0-37); Blood Urea Nitrogen 21 MG/DL (7-18); Calcium 8.3 MG/DL (8.5-10.1); Glucose 148 MG/DL (74-106); Osmolality,Calculated 250.9 MOS/KG (273-304); Total Protein 6.1 G/DL (6.4-8.3); Troponin I 0.023 NG/ML (0.00-0.045)
[2019-03-29] MEDS ORDERED: VANCOMYCIN INJ 1,000 MG in SODIUM CHLORIDE 0.9% 250 ML IV STA (14:48)
[2019-03-29 15:14] LABS: Apearance,Urine CLEAR (Clear); Bacteria,Urine Occasional /HPF (Few); Bilirubin,Urine Negative (Negative); Blood, Urine Negative (Negative); Glucose,Urine (UA) Negative (Negative); Hyaline Casts,Urine 4 /LPF (0-3); Ketones,Urine Negative (Negative); Mucus,Urine Occasional /LPF (Occasional); Nitrite,Urine Negative (Negative); Protein,Urine Negative; RBC,Urine 1 /HPF (0-4); Squamous Epithelial Cell,Urine Occasional /HPF (0-10); Urine Color Yellow (Yellow); Urine Specific Gravity 1.008 (1.001-1.035); Urine Urobilinogen < 2.0 EU/DL (0.2-1.0); WBC,Urine 1 /HPF (0-6)
[2019-03-29] MEDS ORDERED: ONDANSETRON 4 MG/2 ML VIAL IV PRN (16:19)
[2019-03-29] MEDS ORDERED: ALBUTEROL 2.5 MG/3 ML NEB RESP TX PRN (16:19)
[2019-03-29] MEDS ORDERED: FUROSEMIDE 40 MG/4 ML VIAL IV ONE (16:42)
[2019-03-29] MEDS ORDERED: POLYVINYL ALCOHOL 1.4% OPH SOLN 15 ML BOTTLE BOTH EYES PRN (16:48)
[2019-03-29] MEDS ORDERED: FLUTICASONE 50 MCG NASAL SPRAY 16 GM BOTTLE BOTH NARES PRN (16:48)
[2019-03-29 16:56] LABS: ABG Base Excess 1.5 MMOL/L (-2.5-2.5); ABG HCO3 25.3 MMOL/L (20-26); ABG Oxygen Saturation 65.6 % (95-100); ABG PCO2 37.1 MM HG (35-48); ABG PH 7.452 (7.35-7.45); ABG TCO2 26.5 MMOL/L (23-27)
[2019-03-29 16:57] LABS: ABG PO2 35.8 MM HG (80-95)
[2019-03-29] MEDS ORDERED: ENOXAPARIN 100 MG/ML SYRINGE SUBCUT ONE (17:31)
[2019-03-29 17:57] LABS: Band Neutrophils 2 % (0-10); Lymphocytes 1 % (20-55); Platelet Estimate Normal; Segmented Neutrophils 95 % (50-85); Total Cells Counted 100
[2019-03-29] MEDS: PIPERACILLIN/TAZOBACTAM 3,375 MG in SODIUM CHLORIDE 0.9% 100 ML IV SCH (18:49)
[2019-03-29] MEDS: LEVOFLOXACIN INJ 750 MG in PREMIX 1 EACH IV SCH (19:45)
[2019-03-29] MEDS ORDERED: MELATONIN 3 MG TABLET PO PRN (21:00)
[2019-03-29] MEDS ORDERED: LORazepam 2 MG/1 ML VIAL IV STA ×3 (21:05→23:30)
[2019-03-29] MEDS: DOCUSATE SODIUM 100 MG CAPSULE PO SCH (21:18)
[2019-03-30] MEDS ORDERED: MEPERIDINE 25 MG/1 ML VIAL IV ONE ×2 (01:55→21:17)
[2019-03-30] MEDS: PIPERACILLIN/TAZOBACTAM 3,375 MG in SODIUM CHLORIDE 0.9% 100 ML IV SCH ×3 (03:12→21:30)
[2019-03-30 04:33] LABS: Basophils # 0.1 10*3/uL (0.0-0.2); Basophils % 0.2 % (0.0-0.8); Hematocrit 31.8 VOL% (42.0-52.0); Immature Granulocytes % 0.9 %; Immature Granulocytes Absolute 0.22 #; Lymphocytes # 0.5 10*3/uL (1.4-4.0); Lymphocytes % 1.9 % (21.2-54.2); Mean Corpuscular HGB Conc 34.6 GM/DL (32-36); Mean Corpuscular Volume 88.3 FL (87-102); Mean Platelet Volume 9.5 FL (9.6-12.0); Monocytes % 3.8 % (1.7-12.7); Neutrophils % 93.2 % (38.7-73.9); Platelet Count 220 T/CUMM (130-400)
[2019-03-30 04:46] LABS: ABG Base Excess 2.1 MMOL/L (-2.5-2.5); ABG HCO3 26.3 MMOL/L (20-26); ABG Oxygen Saturation 98.9 % (95-100); ABG PH 7.445 (7.35-7.45); ABG TCO2 23.3 MMOL/L (23-27)
[2019-03-30 05:00] LABS: Band Neutrophils 3 % (0-10); Segmented Neutrophils 94 % (50-85)
[2019-03-30 05:01] LABS: Platelet Estimate Adequate; Total Cells Counted 100
[2019-03-30 05:07] LABS: Calcium 8.1 MG/DL (8.5-10.1); Osmolality,Calculated 253.8 MOS/KG (273-304)
[2019-03-30 05:08] LABS: VLDL CHOLESTEROL 16.6 MG/DL
[2019-03-30 05:33] LABS: Thyroid Stimulating Hormone 0.469 uIU/ml (0.358-3.74)
[2019-03-30] MEDS ORDERED: HALOPERIDOL 5 MG/ML AMP IM ONE ×2 (06:09→18:40)
[2019-03-30] MEDS ORDERED: PANTOPRAZOLE 40 MG TABLET PO SCH (09:00)
[2019-03-30] MEDS ORDERED: ENOXAPARIN 40 MG/0.4 ML SYRINGE SUBCUT SCH (09:00)
[2019-03-30 09:42] LABS: Potassium,Urine Random 34 MMOL/L; Sodium, Urine Random < 5.0 MMOL/L
[2019-03-30] MEDS: ZINC OXIDE PASTE 113 GM TUBE TOP SCH ×3 (10:00→22:30)
[2019-03-30] MEDS: CARVEDILOL 3.125 MG TABLET PO SCH ×3 (10:00→22:29)
[2019-03-30] MEDS: VANCOMYCIN INJ 1,500 MG in SODIUM CHLORIDE 0.9% 500 ML IV SCH (12:00)
[2019-03-30] MEDS: VITAMIN E 400 UNIT CAPSULE PO SCH (13:10)
[2019-03-30] MEDS: CYANOCOBALAMIN 500 MCG TABLET PO SCH ×2 (13:10→21:45)
[2019-03-30] MEDS: CHOLECALCIFEROL 1,000 UNIT TABLET PO SCH (13:10)
[2019-03-30] MEDS: FINASTERIDE 5 MG TABLET PO SCH (13:11)
[2019-03-30] MEDS: DOCUSATE SODIUM 100 MG CAPSULE PO SCH ×2 (13:11→21:45)
[2019-03-30] MEDS: MULTIVITAMIN (CENTRUM) TABLET PO SCH (13:11)
[2019-03-30] MEDS: FUROSEMIDE 40 MG/4 ML VIAL IV SCH (13:11)
[2019-03-30] MEDS: CALCIUM (CARBONATE) 600 MG TABLET PO SCH (13:12)
[2019-03-30] MEDS: ASPIRIN EC 81 MG TABLET PO SCH (13:12)
[2019-03-30 14:56] LABS: Osmolality,Calculated 255.5 MOS/KG (273-304)
[2019-03-30] MEDS: FAMOTIDINE 20 MG/2 ML VIAL IV SCH (17:00)
[2019-03-30] MEDS ORDERED: OLANZapine 10 MG VIAL IM ONE (17:53)
[2019-03-30] MEDS ORDERED: LORazepam 2 MG/1 ML VIAL IV ONE ×2 (18:40→21:16)
[2019-03-30] MEDS ORDERED: LORazepam 2 MG/1 ML VIAL ONE (18:42)
[2019-03-30] MEDS ORDERED: HALOPERIDOL 5 MG/ML AMP ONE (18:43)
[2019-03-30] MEDS: LEVOFLOXACIN INJ 750 MG in PREMIX 1 EACH IV SCH (19:15)
[2019-03-31] MEDS: FAMOTIDINE 20 MG/2 ML VIAL IV SCH (01:45)
[2019-03-31] MEDS ORDERED: MEPERIDINE 25 MG/1 ML VIAL IV ONE (03:00)
[2019-03-31 05:01] LABS: Basophils % 0.1 % (0.0-0.8); Hematocrit 30.2 VOL% (42.0-52.0); Hemoglobin 10.5 GM/DL (14.0-18.0); Immature Granulocytes % 1.1 %; Immature Granulocytes Absolute 0.22 #; Lymphocytes # 0.4 10*3/uL (1.4-4.0); Lymphocytes % 2.1 % (21.2-54.2); Mean Corpuscular HGB Conc 34.8 GM/DL (32-36); Mean Corpuscular Volume 88.8 FL (87-102); Mean Platelet Volume 9.6 FL (9.6-12.0); Neutrophils % 91.7 % (38.7-73.9); Platelet Count 200 T/CUMM (130-400); Red Cell Distribution Width 12.2 % (9.3-17.3); White Blood Count 20.9 T/CUMM (4-12)
[2019-03-31] MEDS ORDERED: LORazepam 2 MG/1 ML VIAL IV ONE (05:02)
[2019-03-31] MEDS: PIPERACILLIN/TAZOBACTAM 3,375 MG in SODIUM CHLORIDE 0.9% 100 ML IV SCH (05:15)
[2019-03-31 05:17] LABS: Calcium 8.2 MG/DL (8.5-10.1); Osmolality,Calculated 257.4 MOS/KG (273-304)
[2019-03-31 05:30] LABS: Band Neutrophils 2 % (0-10); Lymphocytes 2 % (20-55); Platelet Estimate Normal; Segmented Neutrophils 93 % (50-85); Total Cells Counted 100
[2019-03-31 06:20] VITALS: BP 102/64
[2019-03-31] MEDS: ASPIRIN EC 81 MG TABLET PO SCH (08:04)
[2019-03-31] MEDS: FINASTERIDE 5 MG TABLET PO SCH (08:04)
[2019-03-31] MEDS: CHOLECALCIFEROL 1,000 UNIT TABLET PO SCH (08:04)
[2019-03-31] MEDS: CYANOCOBALAMIN 500 MCG TABLET PO SCH (08:04)
[2019-03-31] MEDS: MULTIVITAMIN (CENTRUM) TABLET PO SCH (08:04)
[2019-03-31] MEDS: VITAMIN E 400 UNIT CAPSULE PO SCH (08:04)
[2019-03-31] MEDS: DOCUSATE SODIUM 100 MG CAPSULE PO SCH (08:04)
[2019-03-31] MEDS: CARVEDILOL 3.125 MG TABLET PO SCH (08:04)
[2019-03-31] MEDS: CALCIUM (CARBONATE) 600 MG TABLET PO SCH (08:04)
[2019-03-31] MEDS: ZINC OXIDE PASTE 113 GM TUBE TOP SCH (09:30)
[2019-03-31] MEDS: FUROSEMIDE 40 MG/4 ML VIAL IV SCH (09:30)
[2019-03-31] MEDS: VANCOMYCIN INJ 1,500 MG in SODIUM CHLORIDE 0.9% 500 ML IV SCH (09:30)
[2019-03-31] MEDS ORDERED: LORazepam 2 MG/1 ML VIAL IV PRN (09:47)
[2019-03-31] MEDS: HYDROmorphone 2 MG/1 ML VIAL IV PRN ×2 (10:02→11:03)
[2019-04-01 14:30] LABS: Osmolality, Serum 261 mOsm/kg (275 - 295)
[2019-04-01 14:55] LABS: Osmolality, Urine 267 mOsm/kg (150 - 1150)
== END 2019-03-31 11:30 | disposition expired | DRG 189 ==
LOC: EDUNIT# → EDBD → N.ED 13:22 → N.EDINP 16:16 → SUATTDRO 16:16 → N.CC 03-30 07:50
PROVIDERS: ADMIT Internal Medicine; ATTEND Internal Medicine